=== PATIENT | female | born 2005 | race Caucasian/White ===

== ENCOUNTER 2024-05-15 13:53 | Outpatient (AMB) | payer BC, SELFPAY ==
--- NOTE | 2024-05-15 13:59 | AMB.OBINITIA ---
Vital Signs 05/15/24 14:10 Height 1.65 m Height Method Stated Weight 77.734 kg Weight Measurement Method Standing Scale BMI 28.5 BP 104/63 Blood Pressure Source Automatic Cuff Blood Pressure Location Left Upper Arm Position Sitting Respiration 16 Pulse 98 Pulse Source Monitor Temp 97.2 F Temp Source Oral Pulse Oximetry (%) 99 Oxygen Delivery Method Room Air Allergies/Home Meds Allergies & Medications Allergies No Known Allergies Allergy (Verified 05/15/24 14:11) Medication Reconciliation No Known Home Medications 05/15/24 [History Confirmed 05/15/24] Intake Visit Data Collection New Patient or Established: New Patient (never been to [facility]) Reason for Visit:: New OB vist Seen by Clinical Staff ONLY (RN/MA): No Pump Operator Byproducts Required: No Do You Feel Safe at Home: Yes Authorities Contacted: N/A PCP or OBGYN visit in last 3 months: No Hx Now: Yes Are you currently on any form of Control: No Last menstrual period: 02/04/24 Pain Present Currently: No Pain Scale Used: [place]/Numerical Pain scale:: 0 Smoking Status Smoking Status: Never smoker Are you interested in Quitting?: No Questionnaires Covid-19 Vaccine Questionnaire Has patient been vacinated for Covid-19 Have you been vacinated for Covid-19: Yes PHQ-9 PHQ-2 Over the last 2 weeks, how often have you been bothered by any of the following problems? 1. Little interest or pleasure in doing things: not at all 2. Feeling down, depressed, or hopeless: not at all Total score: 0 PHQ-9 3. Trouble falling or staying asleep, or sleeping too much: Not at all 4. Feeling tired or having little energy: Not at all 5. Poor appetite or overeating: Not at all 6. Feeling bad about yourself - or that you are a failure or have let yourself or your family down: Not at all 7. Trouble concentrating on things, such as reading the newspaper or watching television: Not at all 8. Moving or speaking so slowly that other people could have noticed? - Or the opposite - being so fidgety or restless that you have been moving around a lot more than usual: not at all 9. Thoughts that you would be better off or of hurting yourself in some way: Not at all Total score: 0 Source: Developed by Drs. Keshav Keita, Joan Rahman, Mack Flaherty and colleagues, with an educational ingris from [employer]. Depression screen completed yes Social History Living Situation History Marital Status: Single Lives With: Family Housing: House Housing Other:: Not employed this . Tobacco History Smoking Status: Never smoker Alcohol History Alcohol Intake: Current Domestic Abuse History Do You Feel Safe at Home: Yes Past Medical History Past Medical History Have you ever been diagnosed with any of the following: Neurological Problems Meningitis: No Migraine: No Cardiology Problems Cardiac Arrhythmia: No Heart Murmur: No Deep Vein Thrombosis: No Hypertension: No Respiratory Problems Asthma: No Stomache/Intestinal Problems Gall Bladder Disease: No Irritable Bowel: No Genital/Urinary Problems Renal Disease: No Kidney Stones: No Reproductive Problems Breast Cancer: No Endometriosis: No Fibroids: No Genital Herpes: No Gonorrhea: No Pelvic Inflammatory Disease: No Polycystic Ovarian Syndrome: No Previous Pregnancies: No Syphilis: No Musculoskeletal Problems Rheumatoid Arthritis: No Scoliosis: No Carpal Tunnel Syndrome: Yes Fibromyalgia: No Head,Eye,Nose,Throat Problems Glaucoma: No Endocrine Problems Diabetes Mellitus Type 2: No Hypothyroidism: No Thyroid Cancer: No Blood Problems Anemia: No Clotting Problems: No Psychologic Problems Depression: No Anxiety: No Other Problems Hospitalization: No Cosmetic Surgery: No Surgical History Appendectomy: No Bariatric Surgery: No Breast Surgery: No Additional Surgical History: Tonsillectomy History of Present Illness HPI Narrative The patient is a 19-year-old G1, P0 presents with her aunt for a new OB appointment her LMP was 02/04/2024 making her approximately 15 weeks today. OB Initial Visit Menstrual History Menstrual reliability: definite Flow: normal Menstrual regularity: regular Monthly: Yes Age at menarche: 11 On control pills at conception: No Date of positive home test: 03/11/24 Associated symptoms (LMP): Reports fatigue, breast tenderness and bloating OB History : 1 Para: 0 Infection History & Risk Evaluation History of STDs: none HIV risk evaluation: low risk Hepatitis B risk evaluation: low risk Patient or partner has history of Genital Herpes: No Varicella/chicken pox status: immunized Genetic Screening & History Genetic Screening/Teratology Counseling - Includes patient, baby's father, or anyone in either family with: 1. Patient's age 35 years or older as of estimated date of delivery: No 2. Thalassemia (Azeri, Danish, Mediterranean, or Background); MCV less than 80: No 3. Neural Tube Defect (Meningomyelocele, Spina Bifida, or Anencephaly): No 4. Congenital Heart Defect: No 5. Down Syndrome: No 6. Omi-Sachs (Ashkenazi Anabaptist, Cajun, Nigerien Elmo): No 7. Barney Disease (Ashkenazi Anabaptist): No 8. Familial Dysautonomia (Ashkenazi Anabaptist): No 9. Sickle Cell Disease or Trait (): No 10. Hemophilia or other blood disorders: No 11. Muscular Dystrophy: No 12. Cystic Fibrosis: No 13. Jacob's Chorea: No 14. Mental Retardation/Autism: No 15. Other inherited genetic or chromosomal disorder: No 16. Maternal Metabolic Disorder (EG,TYPE 1 Diabetes, PKU): No 17. Patient or baby's father had a child with defects not listed above: No 18. Recurrent loss or a stillbirth: No 19. Medications (including supplements, vitamins, herbs or otc drugs)/illicit/recreational drugs/alcohol since last menstrual period: No 20. Any other: No Infection History 1. Live with someone with TB or exposed to TB: No 2. Rash or viral illness since last menstrual period: No 3. Hepatitis B,C: No Other (see comments) Source: [employer] OB Flowsheet OB Flowsheet Initial Weight: Not Recorded Date <del>?</del> EGA Weight Edema CTX Effacement BP Fundal ht Pres Dilation Effacement Station Visit Note Alb Glu FHR Mov 05/15/24 <del>?</del> 15w 3d 77.734 kg 104/63 16 145 Review of Systems Constitutional Constitutional: Reports system reviewed and no additional complaints, except as documented and Reports fatigue Comments: Patient reports fatigue she was nauseous but not anymore Gastrointestinal Gastrointestinal: Reports bloating Endocrine Endocrine: Reports fatigue Exam General Limitations: no limitations General Appearance: alert, in no apparent distress, comfortable, cooperative, healthy appearing and well groomed Neck Neck exam: Present normal inspection, full ROM and trachea midline Chest Chest inspection: Present normal inspection and symmetric chest wall rise Resp Respiratory exam: Present normal lung sounds bilaterally Card Cardiovascular exam: Present regular rate, normal rhythm and normal heart sounds Abdominal Abdominal exam: Present soft and normal bowel sounds Extremities Extremities exam: Present normal inspection and full ROM Psych Psychiatric exam: Present normal affect and normal mood Skin Skin exam: Present warm, dry, intact and normal color Assessment & Plan Diagnosis / Problem List (1) : Status: Acute Qualifiers: Weeks of gestation: 15 weeks Qualified Code(s): Z3A.15 - 15 weeks gestation of Assessment and Plan: IUP at 15 weeks. Offered NIPT. Labs ordered. F/U 4 weeks Additional Plan Follow Up: 4 Weeks Office Procedures OB Clinic LOC & Office Proc's Nursing/Assessment Patient Status: Initial/New Patient OB Clinic Nursing Assessment: BP Monitoring, Update PMH in EMR and Vital Signs OB Clinic Coordination of Care: Complex Care and Chronic Disease 1-5, Consent,records obtained, informed consent, Education Simp Pt/Fam and Staff clarify orders Special Needs: Heart tones New Patient Charge New Patient Point Assignment: [id number] New Patient Point Charge: PHARMACY SALESPERSON Level 4 ([id number]) Bedside Ultrasounds US Transabdominal >14 weeks at bedside: Yes
[2024-05-15 14:10] VITALS: BP 104/63; PULSE 98; RESP 16; TEMP 36.2; O2SAT 99; BMI 28.5
== END 2024-05-15 14:39 | disposition home or self-care (01) ==
LOC: HODSOBC 13:53
PROVIDERS: PCP Family Medicine; Referring Provider Family Medicine; Supervising Provider Obstetrics & Gynecology; Visit Provider Obstetrics & Gynecology
DX: Z34.02 Encounter for supervision of normal first pregnancy, second trimester (principal); Z3A.15 15 weeks gestation of pregnancy
CPT/HCPCS: 76805; 99204; G0463

== ENCOUNTER 2024-06-19 10:05 | Outpatient (AMB) | payer BC, SELFPAY ==
[2024-06-19 10:23] VITALS: BP 115/71; PULSE 83; RESP 18; TEMP 36.2; O2SAT 98; BMI 29.9
--- NOTE | 2024-06-19 10:23 | AMB.OBVISIT ---
Vital Signs 06/19/24 10:23 Height 1.65 m Height Method Stated Weight 81.647 kg Weight Measurement Method Standing Scale BMI 29.9 BP 115/71 Blood Pressure Source Automatic Cuff Blood Pressure Location Left Upper Arm Position Sitting Respiration 18 Pulse 83 Pulse Source Monitor Temp 97.2 F Temp Source Oral Pulse Oximetry (%) 98 Oxygen Delivery Method Room Air Allergies/Home Meds Allergies & Medications Allergies No Known Allergies Allergy (Verified 06/19/24 10:24) Medication Reconciliation No Known Home Medications 05/15/24 [History Confirmed 06/19/24] Intake Visit Data Collection New Patient or Established: Established Patient [place] [facility] Reason for Visit:: Return OB visit Seen by Clinical Staff ONLY (RN/MA): No Concrete Pump Operator Required: No Do You Feel Safe at Home: Yes Authorities Contacted: N/A PCP or OBGYN visit in last 3 months: Yes Date of Last PCP or OBGYN visit: 05/15/24 Hx Now: Yes Are you currently on any form of Control: No Pain Present Currently: No Pain Scale Used: [place]/Numerical Pain scale:: 0 Smoking Status Smoking Status: Never smoker Questionnaires Covid-19 Vaccine Questionnaire Has patient been vacinated for Covid-19 Have you been vacinated for Covid-19: Yes PHQ-9 PHQ-2 Over the last 2 weeks, how often have you been bothered by any of the following problems? 1. Little interest or pleasure in doing things: not at all 2. Feeling down, depressed, or hopeless: not at all Total score: 0 PHQ-9 3. Trouble falling or staying asleep, or sleeping too much: Not at all 4. Feeling tired or having little energy: Not at all 5. Poor appetite or overeating: Not at all 6. Feeling bad about yourself - or that you are a failure or have let yourself or your family down: Not at all 7. Trouble concentrating on things, such as reading the newspaper or watching television: Not at all 8. Moving or speaking so slowly that other people could have noticed? - Or the opposite - being so fidgety or restless that you have been moving around a lot more than usual: not at all 9. Thoughts that you would be better off or of hurting yourself in some way: Not at all Total score: 0 If you checked off any problems, how difficult have these problems made it for you to do your work, take care of things at home, or get along with other people?: not difficult at all Source: Developed by Drs. Keshav Keita, Joan Rahman, Mack Flaherty and colleagues, with an educational ingris from [employer]. Depression screen completed yes Social History Living Situation History Marital Status: Lives With: Family Housing: House Housing Other:: Not employed this . Tobacco History Smoking Status: Never smoker Alcohol History Alcohol Intake: Current Domestic Abuse History Do You Feel Safe at Home: Yes Past Medical History Past Medical History Have you ever been diagnosed with any of the following: Neurological Problems Meningitis: No Migraine: No Cardiology Problems Cardiac Arrhythmia: No Heart Murmur: No Deep Vein Thrombosis: No Hypertension: No Respiratory Problems Asthma: No Stomache/Intestinal Problems Gall Bladder Disease: No Irritable Bowel: No Genital/Urinary Problems Renal Disease: No Kidney Stones: No Reproductive Problems Breast Cancer: No Endometriosis: No Fibroids: No Genital Herpes: No Gonorrhea: No Pelvic Inflammatory Disease: No Polycystic Ovarian Syndrome: No Previous Pregnancies: No Syphilis: No Musculoskeletal Problems Rheumatoid Arthritis: No Scoliosis: No Carpal Tunnel Syndrome: Yes Fibromyalgia: No Head,Eye,Nose,Throat Problems Glaucoma: No Endocrine Problems Diabetes Mellitus Type 2: No Hypothyroidism: No Thyroid Cancer: No Blood Problems Anemia: No Clotting Problems: No Psychologic Problems Depression: No Anxiety: No Other Problems Hospitalization: No Cosmetic Surgery: No Surgical History Appendectomy: No Bariatric Surgery: No Breast Surgery: No History of Present Illness HPI Narrative Patient presents for routine OB visit. She is a 19-year-old G1, P0 LMP 02/04/2024 EDC 11/12/2024. Patient was seen with her aunt last time and now with her mother. She states the father the baby is going to be involved he plays baseball for [employer]. She went to peek [facility] baby recently and found that she is having a girl. Visit OB Visit Log OB Flowsheet Initial Weight: Not Recorded Date <del>?</del> EGA Weight Edema CTX Effacement BP Fundal ht Pres Dilation Effacement Station Visit Note Alb Glu FHR Mov 05/15/24 <del>?</del> 15w 3d 77.734 kg 104/63 16 145 06/19/24 <del>?</del> 20w 3d 81.647 kg 115/71 21 Offered NIPT patient's mother is going to call to see if this is covered. 150 KANA Calculator Estimated Delivery Date Method Current WG Current Estimate 11/03/24 Ultrasound #1 20w 3d Other Estimates 11/10/24 LMP (Certain) 19w 3d Comments: lab reviewed from [facility] drawn 06/21: A positive /antibody screen negative/ rubella immune /RPR nonreactive/ hepatitis B surface antigen negative /hemoglobin A1c 4.5 missing on her labs is a urine GC chlamydia/ HIV and urine culture. Expected Delivery Route/Plan Anticipate Notes Visit Date: 06/19/24 Last Updated by: Mulu Brown (OB Clinic)MD Labs reviewed. Patient needs HIV, GC chlamydia, urine culture. Needs structural survey. Assessment & Plan Diagnosis / Problem List (1) : Status: Acute Qualifiers: Weeks of gestation: 20 weeks Qualified Code(s): Z3A.20 - 20 weeks gestation of Assessment and Plan: Ordered structural survey. They are considering NIPT. Other labs that are missing we will draw at the 24-week glucose challenge test. Office Procedures OB Clinic LOC & Office Proc's Nursing/Assessment Patient Status: Established Patient OB Clinic Nursing Assessment: BP Monitoring, Medication Reconciliation, Update PMH in EMR and Vital Signs OB Clinic Coordination of Care: Consent,records obtained, informed consent, Education Simp Pt/Fam, Lab and Imaging orders and Staff clarify orders Special Needs: Heart tones Established Patient Charge Established Patient Point Assignment: 120 Established Patient Point Charge: EP Level 4 (120-155)
== END 2024-06-19 10:44 | disposition home or self-care (01) ==
LOC: HODSOBC 10:05
PROVIDERS: PCP Family Medicine; Referring Provider Family Medicine; Supervising Provider Obstetrics & Gynecology; Visit Provider Obstetrics & Gynecology
DX: Z34.02 Encounter for supervision of normal first pregnancy, second trimester (principal); Z3A.20 20 weeks gestation of pregnancy
CPT/HCPCS: 99214; G0463

== ENCOUNTER 2024-07-15 08:21 | Outpatient (AMB) | payer BC, SELFPAY ==
--- NOTE | 2024-07-15 08:43 | OBCLNT_ITS ---
Vital Signs 07/15/24 08:44 Height 1.65 m Height Method Stated Weight 85.729 kg Weight Measurement Method Standing Scale BMI 31.4 BP 124/75 Blood Pressure Source Automatic Cuff Blood Pressure Location Left Upper Arm Position Sitting Respiration 14 Pulse 79 Pulse Source Monitor Temp 97.7 F Temp Source Oral Pulse Oximetry (%) 98 Oxygen Delivery Method Room Air Allergies/Home Meds Allergies & Medications Allergies No Known Allergies Allergy (Verified 07/15/24 08:45) Medication Reconciliation No Known Home Medications 05/15/24 [History Confirmed 07/15/24] Intake Visit Data Collection New Patient or Established: Established Patient (seen at [facility] within 3 years) Reason for Visit:: CARE Seen by Clinical Staff ONLY (RN/MA): No Floor Layer 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 1. Little interest or pleasure in doing things: not at all 2. Feeling down, depressed, or hopeless: not at all Total score: 0 PHQ-9 3. Trouble falling or staying asleep, or sleeping too much: Not at all 4. Feeling tired or having little energy: Not at all 5. Poor appetite or overeating: Not at all 6. Feeling bad about yourself - or that you are a failure or have let yourself or your family down: Not at all 7. Trouble concentrating on things, such as reading the newspaper or watching television: Not at all 8. Moving or speaking so slowly that other people could have noticed? - Or the opposite - being so fidgety or restless that you have been moving around a lot more than usual: not at all 9. Thoughts that you would be better off or of hurting yourself in some way: Not at all Total score: 0 Source: Developed by Drs. Keshav Keita, Joan Rahman, Mack Flaherty and colleagues, with an educational ingris from [employer]. Depression screen completed yes Social History Living Situation History Lives With: Family Housing: House Housing Other:: Not employed this . 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 Past Medical History: No Hx Hypothyroidism, No Hx Breast Cancer, No Hx Hypertension, No Hx Anemia, No Hx Renal Disease, No Hx Deep Vein Thrombosis, No Hx Diabetes Mellitus Type 2 and No Hx Polycystic Ovarian Syndrome Care OB Visit Log OB Flowsheet Initial Weight: Not Recorded Date -?-?-?-?-?-?-?-?-?-?-?-?- EGA Weight Edema CTX Effacement BP Fundal ht Pres Dilation Effacement Station Visit Note Alb Glu FHR Mov 05/15/24 -?-?-?-?-?-?-?-?-?-?-?-?- 15w 3d 77.734 kg 104/63 16 145 06/19/24 -?-?-?-?-?-?-?-?-?-?-?-?- 20w 3d 81.647 kg 115/71 21 O ffered NIPT patient's mother is going to call to see if this is covered. 150 07/15/24 -?-?-?-?-?-?-?-?-?-?-?-?- 24w 1d 85.729 kg 124/75 24 FOB here. +FM No UCs or LOF 147 active KANA Calculator Estimated Delivery Date Method Current WG Current Estimate 11/03/24 Ultrasound #1 24w 1d Other Estimates 11/10/24 LMP (Certain) 23w 1d Comments: labs: A+\antibody negative\rubella immune\RPR nonreactive\ hepatitis B surface antigen negative. No HIV GC chlamydia or urinalysis done. These are ordered today. Expected Delivery Route/Plan Anticipate Notes Visit Date: 07/15/24 Last Updated by: Mulu Brown (OB Clinic)MD SS done in [place] at [facility]. GCT ordered Visit Date: 06/19/24 Last Updated by: Mulu Brown (OB Clinic)MD Labs reviewed. Patient needs HIV, GC chlamydia, urine culture. Needs structural survey. Office Procedures OB Clinic LOC & Office Proc's Nursing/Assessment Patient Status: Established Patient OB Clinic Nursing Assessment: Medication Reconciliation, Update PMH in EMR and Vital Signs OB Clinic Coordination of Care: Complex Care and Chronic Disease 1-5, Consent,records obtained, informed consent, Education Simp Pt/Fam, Lab and Imaging orders and Staff clarify orders Special Needs: Heart tones Established Patient Charge Established Patient Point Assignment: 130 Established Patient Point Charge: EP Level 4 (120-155) Assessment & Plan Diagnosis / Problem List (1) : Status: Acute Qualifiers: Weeks of gestation: 24 weeks Qualified Code(s): Z3A.24 - 24 weeks gestation of
[2024-07-15 08:44] VITALS: BP 124/75; PULSE 79; RESP 14; TEMP 36.5; O2SAT 98; BMI 31.4
== END 2024-07-15 09:40 | disposition home or self-care (01) ==
LOC: HODSOBC 08:21
PROVIDERS: PCP Family Medicine; Referring Provider Family Medicine; Supervising Provider Obstetrics & Gynecology; Visit Provider Obstetrics & Gynecology
DX: O09.612 Supervision of young primigravida, second trimester (principal); Z3A.24 24 weeks gestation of pregnancy
CPT/HCPCS: 99214; G0463

== ENCOUNTER → 2024-08-06 | Outpatient (CLI) | payer BC, SELFPAY ==
[2024-08-06 14:32] LABS: Glucose,1 Hour PP 50gm Dose 71 mg/dL (80-140)
[2024-08-06 14:52] LABS: HIV (1&2) Antibody Rapid Non-Reactive
[2024-08-06 17:56] LABS: Chlamydia trachomatis PCR Negative (Not Detect); Neisseria Gonorrhoeae DNA PCR Negative (Not Detect); Trichomonas Negative (Negative)
== END | disposition home or self-care (01) ==
LOC: COPL 12:19
PROVIDERS: PCP Family Medicine; Referring Provider Obstetrics & Gynecology; Visit Provider Obstetrics & Gynecology
DX: Z01.89 Encounter for other specified special examinations (principal)
CPT/HCPCS: 36415; 82950; 86703; 87086; 87491; 87591; 87661

== ENCOUNTER 2024-08-12 11:37 | Outpatient (AMB) | payer BC, SELFPAY ==
[2024-08-12 11:56] VITALS: BP 106/70; PULSE 71; RESP 18; TEMP 36.2; O2SAT 97; BMI 32.8
--- NOTE | 2024-08-12 11:56 | OBCLNT_ITS ---
Vital Signs 08/12/24 11:56 Height 1.65 m Height Method Stated Weight 89.414 kg Weight Measurement Method Standing Scale BMI 32.8 BP 106/70 Blood Pressure Source Automatic Cuff Blood Pressure Location Left Upper Arm Position Sitting Respiration 18 Pulse 71 Pulse Source Monitor Temp 97.2 F Temp Source Oral Pulse Oximetry (%) 97 Oxygen Delivery Method Room Air Allergies/Home Meds Allergies & Medications Allergies No Known Allergies Allergy (Verified 08/12/24 12:01) Medication Reconciliation vitamin no.45-iron-FA 28 mg iron-1 mg chewable tablet 1 tab PO 08/12/24 [History] Intake Visit Data Collection New Patient or Established: Established Patient (seen at [facility] within 3 years) Reason for Visit:: OBC Seen by Clinical Staff ONLY (RN/MA): No Ortho/Prosthetic Aide Required: No Do You Feel Safe at Home: Yes Authorities Contacted: N/A PCP or OBGYN visit in last 3 months: Yes Date of Last PCP or OBGYN visit: 07/15/24 Hx Now: Yes Are you currently on any form of Control: No Pain Present Currently: No Pain Scale Used: [place]/Numerical Pain scale:: 0 Smoking Status Smoking Status: Never smoker Questionnaires Covid-19 Vaccine Questionnaire Has patient been vacinated for Covid-19 Have you been vacinated for Covid-19: Yes PHQ-9 PHQ-2 Over the last 2 weeks, how often have you been bothered by any of the following problems? 1. Little interest or pleasure in doing things: not at all 2. Feeling down, depressed, or hopeless: not at all Total score: 0 PHQ-9 3. Trouble falling or staying asleep, or sleeping too much: Not at all 4. Feeling tired or having little energy: Not at all 5. Poor appetite or overeating: Not at all 6. Feeling bad about yourself - or that you are a failure or have let yourself or your family down: Not at all 7. Trouble concentrating on things, such as reading the newspaper or watching television: Not at all 8. Moving or speaking so slowly that other people could have noticed? - Or the opposite - being so fidgety or restless that you have been moving around a lot more than usual: not at all 9. Thoughts that you would be better off or of hurting yourself in some way: Not at all Total score: 0 If you checked off any problems, how difficult have these problems made it for you to do your work, take care of things at home, or get along with other people?: not difficult at all Source: Developed by Drs. Keshav Keita, Joan Rahman, Mack Flaherty and colleagues, with an educational ingris from [employer]. Depression screen completed yes Social History Living Situation History Marital Status: Single Lives With: Family Housing: House Housing Other:: Not employed this . 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 LMP 02/04/2024 EDC 11/12/2024 Care OB Visit Log OB Flowsheet Initial Weight: Not Recorded Date -?-?-?-?-?-?-?-?-?-?-?-?- EGA Weight BP Alb Glu CTX Pres Fundal ht FHR Mov Dilation Station Effacement Hx Notes Visit Note 05/15/24 -?-?-?-?-?-?-?-?-?-?-?-?- 15w 3d 77.734 kg 104/63 16 145 06/19/24 -?-?-?-?-?-?-?-?-?-?-?-?- 20w 3d 81.647 kg 115/71 21 150 Offered NIPT patient's mother is going to call to see if this is covered. 07/15/24 -?-?-?-?-?-?-?-?-?-?-?-?- 24w 1d 85.729 kg 124/75 24 147 active FOB here. +FM No UCs or LOF 08/12/24 -?-?-?-?-?-?-?-?-?-?-?-?- 28w 1d 89.414 kg 106/70 28 135 active + Cramping/NO VB + back pain. To OBT KANA Calculator Estimated Delivery Date Method Current WG Current Estimate 11/03/24 Ultrasound #1 28w 2d Other Estimates 11/10/24 LMP (Certain) 27w 2d Comments: LMP 02/04/24 EDC 11/12/2024 care labs A+\antibody negative\rubella immune\RPR nonreactive\hepatitis B surface antigen negative\HIV negative\hep C negative\GC negative\chlamydia negative 1 hour glucose 71 Structural survey normal Expected Delivery Route/Plan Anticipate Notes Visit Date: 07/15/24 Last Updated by: Mulu Brown (OB Clinic)MD SS done in [place] [facility] GCT ordered Visit Date: 06/19/24 Last Updated by: Mulu Brown (OB Clinic)MD Labs reviewed. Patient needs HIV, GC chlamydia, urine culture. Needs structural survey. Office Procedures OB Clinic LOC & Office Proc's Nursing/Assessment Patient Status: Established Patient OB Clinic Nursing Assessment: Medication Reconciliation, Update PMH in EMR and Vital Signs OB Clinic Coordination of Care: Education Complex Pt/Fam, Consent,records obtained, informed consent, Education Simp Pt/Fam and Lab and Imaging orders Special Needs: Heart tones Established Patient Charge Established Patient Point Assignment: 115 Established Patient Point Charge: EP Level 3 (80-115) Assessment & Plan Diagnosis / Problem List (1) : Status: Acute Qualifiers: Weeks of gestation: 27 weeks Qualified Code(s): Z3A.27 - 27 weeks gestation of Assessment and Plan: This patient is having some cramping send over to OB triage for evaluation. Also ordered glucose challenge test.
== END 2024-08-12 12:08 | disposition home or self-care (01) ==
LOC: HODSOBC 11:37
PROVIDERS: PCP Family Medicine; Referring Provider Family Medicine; Supervising Provider Obstetrics & Gynecology; Visit Provider Obstetrics & Gynecology
DX: Z34.03 Encounter for supervision of normal first pregnancy, third trimester (principal); Z3A.28 28 weeks gestation of pregnancy
CPT/HCPCS: 99213; G0463

== ENCOUNTER 2024-08-12 12:25 | Observation (INO) | payer BC, SELFPAY ==
[2024-08-12] VITALS (25 sets, daily range): BP systolic 114; BP diastolic 59; PULSE 67–97; RESP 18–99; TEMP 36.5; O2SAT 90–100; BMI 32.8
--- NOTE | 2024-08-12 12:36 | XR_ITS ---
Examination: Complete OB ultrasound greater than 14 weeks Date and time of exam: August 12, 2024 1249 hours INDICATIONS: Pelvic pain and lower back pain beginning one week ago Findings: Viable intrauterine single fetus with single amniotic sac presentation cephalic spine anterior Cardiac motion 137 BPM Placenta anterior grade 1 Umbilical cord insertion seen Amniotic fluid index 19.2 cm Cervix 2.5 cm Ovaries obscured by bowel gas. Composite estimated gestational age based on BPD, head circumference, abdominal circumference, femur length is 28 weeks 1 day Estimated weight 1102 g. Survey of intracranial anatomy, spinal anatomy, abdominal anatomy, four-chamber heart performed with no abnormalities identified. Impression: Viable intrauterine gestation cephalic presentation.
[2024-08-12 13:03] LABS: Collection Type, Urine Clean Catch
[2024-08-12 13:31] LABS: FFN Specimen Descripton Other; Fetal Fibronectin Negative (Negative)
[2024-08-12 13:43] LABS: Bacteria,Urine Rare; Bilirubin,Urine Negative (Negative); Blood,Urine Negative (Negative); Clarity,Urine Clear (Clear/Hazy); Color,Urine Lt-Yellow (Lt Yel-Yel); Glucose, Urine Negative (Negative); Ketones,Urine Negative (Negative); Leukocyte Esterase,Urine Negative (Negative); Nitrite,Urine Negative (Negative); Protein,Urine Negative (Neg - Trace); RBC,Urine 2 /hpf (0-3); Specific Gravity,Urine 1.026 (1.001-1.035); Squamous Epithelial Cell,Urine 10 /hpf (0-5); Urobilinogen,Urine Negative mg/dL (0.0-1.0); WBC,Urine 2 /hpf (0-5)
== END 2024-08-12 14:35 | disposition home or self-care (01) ==
PROVIDERS: Admitting Provider Obstetrics & Gynecology; Visit Provider Obstetrics & Gynecology
DX: O26.892 Other specified pregnancy related conditions, second trimester (principal); Z3A.27 27 weeks gestation of pregnancy; M54.9 Dorsalgia, unspecified; R10.2 Pelvic and perineal pain
CPT/HCPCS: 59025; 59899; 76805; 81001; 82731; 87086

== ENCOUNTER 2024-09-13 14:28 | Outpatient (AMB) | payer BC, SELFPAY ==
[2024-09-13 14:38] VITALS: BP 113/73; PULSE 82; RESP 15; TEMP 36.9; O2SAT 97; BMI 33.3
--- NOTE | 2024-09-13 14:38 | OBCLNT_ITS ---
Vital Signs 09/13/24 14:38 Height 1.65 m Height Method Stated Weight 90.718 kg Weight Measurement Method Standing Scale BMI 33.3 BP 113/73 Blood Pressure Source Automatic Cuff Blood Pressure Location Left Upper Arm Position Sitting Respiration 15 Pulse 82 Pulse Source Monitor Temp 98.4 F Temp Source Oral Pulse Oximetry (%) 97 Oxygen Delivery Method Room Air Allergies/Home Meds Allergies & Medications Allergies No Known Allergies Allergy (Verified 09/13/24 14:44) Medication Reconciliation vitamin no.45-iron-FA 28 mg iron-1 mg chewable tablet 1 tab PO 08/12/24 [History Confirmed 09/13/24] Intake Visit Data Collection New Patient or Established: Established Patient (seen at [facility] within 3 years) Reason for Visit:: CARE Seen by Clinical Staff ONLY (RN/MA): No Solution Make Up Operator Required: No Do You Feel Safe at Home: Yes Authorities Contacted: N/A PCP or OBGYN visit in last 3 months: No Hx Now: Yes Are you currently on any form of Control: No Pain Present Currently: No Pain Scale Used: [place]/Numerical Pain scale:: 0 Smoking Status Smoking Status: Never smoker Questionnaires Covid-19 Vaccine Questionnaire Has patient been vacinated for Covid-19 Have you been vacinated for Covid-19: Yes PHQ-9 PHQ-2 Over the last 2 weeks, how often have you been bothered by any of the following problems? 1. Little interest or pleasure in doing things: not at all 2. Feeling down, depressed, or hopeless: not at all Total score: 0 PHQ-9 3. Trouble falling or staying asleep, or sleeping too much: Not at all 4. Feeling tired or having little energy: Not at all 5. Poor appetite or overeating: Not at all 6. Feeling bad about yourself - or that you are a failure or have let yourself or your family down: Not at all 7. Trouble concentrating on things, such as reading the newspaper or watching television: Not at all 8. Moving or speaking so slowly that other people could have noticed? - Or the opposite - being so fidgety or restless that you have been moving around a lot more than usual: not at all 9. Thoughts that you would be better off or of hurting yourself in some way: Not at all Total score: 0 Source: Developed by Drs. Keshav Keita, Joan Rahman, Mack Flaherty and colleagues, with an educational ingris from [employer]. Depression screen completed yes Social History Living Situation History Lives With: Family Housing: House Housing Other:: Not employed this . 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 She stays at home. The FOB is a golf ball marker at [employer]. Care OB Visit Log OB Flowsheet Initial Weight: 76 kg Date -?-?-?-?-?-?-?-?-?-?-?-?- EGA Weight BP Alb Glu CTX Pres Fundal ht FHR Mov Dilation Station Effacement Hx Notes Visit Note 05/15/24 -?-?-?-?-?-?-?-?-?-?-?-?- 15w 3d 77.734 kg (+1734.392 g) 104/63 16 145 06/19/24 -?-?-?-?-?-?-?-?-?-?-?-?- 20w 3d 81.647 kg (+5646.626 g) 115/71 21 150 Offered NIPT patient's mother is going to call to see if this is covered. 07/15/24 -?-?-?-?-?-?-?-?-?-?-?-?- 24w 1d 85.729 kg (+9728.958 g) 124/75 24 147 active FOB here. +FM No UCs or LOF 08/12/24 -?-?-?-?-?-?-?-?-?-?-?-?- 28w 1d 89.414 kg (+13.414 kg) 106/70 28 135 active + Cramping/NO VB + back pain. To OBT 09/13/24 -?-?-?-?-?-?-?-?-?-?-?-?- 32w 5d 90.718 kg (+14.718 kg) 113/73 32 134 active +FM no UCs or LOF KANA Calculator Estimated Delivery Date Method Current WG Current Estimate 11/03/24 Ultrasound #1 33w 0d Other Estimates 11/10/24 LMP (Certain) 32w 0d Expected Delivery Route/Plan Anticipate Specific Issue/Plans Some PNC at [facility] and the rest at [facility]: A+/Ab-/RI/NR/HIV-/Hep BSag-/One hour GCT 71/ GC-/Chlam- Notes Visit Date: 09/13/24 Last Updated by: Mulu Brown (OB Clinic)MD PNC [facility] 05/29/24 on chart: A+/Ab-/ RI/RPR NR/ HepBSag-/No HIV resulted Visit Date: 07/15/24 Last Updated by: Mulu Brown (OB Clinic)MD SS done in [place] at [facility]. GCT ordered Visit Date: 06/19/24 Last Updated by: Mulu Brown (OB Clinic)MD Labs reviewed. Patient needs HIV, GC chlamydia, urine culture. Needs structural survey. Office Procedures OB Clinic LOC & Office Proc's Nursing/Assessment Patient Status: Established Patient OB Clinic Nursing Assessment: Medication Reconciliation, Update PMH in EMR and Vital Signs OB Clinic Coordination of Care: Complex Care and Chronic Disease 1-5, Consent,records obtained, informed consent, Education Simp Pt/Fam, Lab and Imaging orders, Results/Orders obtained and Staff clarify orders Special Needs: Heart tones Established Patient Charge Established Patient Point Assignment: 135 Established Patient Point Charge: EP Level 4 (120-155)
== END 2024-09-13 15:30 | disposition home or self-care (01) ==
LOC: HODSOBC 14:28
PROVIDERS: PCP Family Medicine; Referring Provider Family Medicine; Supervising Provider Obstetrics & Gynecology; Visit Provider Obstetrics & Gynecology
DX: Z34.03 Encounter for supervision of normal first pregnancy, third trimester (principal); Z3A.32 32 weeks gestation of pregnancy
CPT/HCPCS: 99214; G0463

== ENCOUNTER → 2024-09-13 | Outpatient (CLI) | payer BC, SELFPAY ==
[2024-09-13 16:31] LABS: Basophils # (Auto) 0.1 Thou/mm3 (0.0-0.2); Basophils % (Auto) 1 % (0-2.5); Eosinophils # (Auto) 0.1 Thou/mm3 (0.0-0.5); Eosinophils % (Auto) 2 % (0-10); Hematocrit 35.2 % (36.0-46.0); Hemoglobin 12.4 g/dL (12.0-16.0); Immature Granulocytes Auto 0.08 Thou/mm3 (0.00-0.00); Lymphocytes # (Auto) 1.6 Thou/mm3 (1.0-4.8); Lymphocytes % (Auto) 19 % (10-50); Mean Corpuscular HGB Conc 35.2 g/dl (31.0-37.0); Mean Corpuscular Hemoglobin 29.9 pg (25.0-35.0); Mean Corpuscular Volume 85 fL (80-100); Monocytes # (Auto) 0.7 Thou/mm3 (0.0-0.8); Monocytes % (Auto) 9 % (0-12); Neutrophils # (Auto) 6.0 Thou/mm3 (1.8-7.7); Neutrophils % (Auto) 70 % (37-80); Nucleated Red Blood Cell # 0.00 Thou/mm3 (0.00-0.00); Nucleated Red Blood Cell % 0 /100 WBC (0); Platelet Count 227 Thou/mm3 (140-440); RDW Standard Deviation 37.6 fL (36.4-46.3); Red Blood Count 4.15 Miln/mm3 (4.00-5.20); White Blood Count 8.5 Thou/mm3 (4.5-11.0)
[2024-09-13 17:18] LABS: Syphilis Nonreactive (Nonreactive)
== END | disposition home or self-care (01) ==
LOC: COPL 15:46
PROVIDERS: PCP Family Medicine; Referring Provider Obstetrics & Gynecology; Visit Provider Obstetrics & Gynecology
DX: Z34.92 Encounter for supervision of normal pregnancy, unspecified, second trimester (principal); Z3A.00 Weeks of gestation of pregnancy not specified
CPT/HCPCS: 36415; 85025; 86780

== ENCOUNTER 2024-09-26 10:33 | Outpatient (AMB) | payer BC, SELFPAY ==
[2024-09-26 10:40] VITALS: BP 108/70; PULSE 99; RESP 16; TEMP 36.2; O2SAT 98; BMI 33.8
--- NOTE | 2024-09-26 10:40 | OBCLNT_ITS ---
Vital Signs 09/26/24 10:40 Height 1.65 m Height Method Stated Weight 92.136 kg Weight Measurement Method Standing Scale BMI 33.8 BP 108/70 Blood Pressure Source Automatic Cuff Blood Pressure Location Left Upper Arm Position Sitting Respiration 16 Pulse 99 Pulse Source Monitor Temp 97.2 F Temp Source Oral Pulse Oximetry (%) 98 Oxygen Delivery Method Room Air Allergies/Home Meds Allergies & Medications Allergies No Known Allergies Allergy (Verified 09/26/24 10:41) Medication Reconciliation vitamin no.45-iron-FA 28 mg iron-1 mg chewable tablet 1 tab PO 08/12/24 [History Confirmed 09/26/24] Intake Visit Data Collection New Patient or Established: Established Patient (seen at [facility] within 3 years) Reason for Visit:: OB WEEKLY Seen by Clinical Staff ONLY (RN/MA): No Java Security Architect Required: No Do You Feel Safe at Home: Yes Authorities Contacted: N/A PCP or OBGYN visit in last 3 months: Yes Date of Last PCP or OBGYN visit: 09/13/24 Hx Now: Yes Are you currently on any form of Control: No Pain Present Currently: No Pain Scale Used: [place]/Numerical Pain scale:: 0 Smoking Status Smoking Status: Never smoker Questionnaires Covid-19 Vaccine Questionnaire Has patient been vacinated for Covid-19 Have you been vacinated for Covid-19: Yes PHQ-9 PHQ-2 Over the last 2 weeks, how often have you been bothered by any of the following problems? 1. Little interest or pleasure in doing things: not at all 2. Feeling down, depressed, or hopeless: not at all Total score: 0 PHQ-9 3. Trouble falling or staying asleep, or sleeping too much: Not at all 4. Feeling tired or having little energy: Not at all 5. Poor appetite or overeating: Not at all 6. Feeling bad about yourself - or that you are a failure or have let yourself or your family down: Not at all 7. Trouble concentrating on things, such as reading the newspaper or watching television: Not at all 8. Moving or speaking so slowly that other people could have noticed? - Or the opposite - being so fidgety or restless that you have been moving around a lot more than usual: not at all 9. Thoughts that you would be better off or of hurting yourself in some way: Not at all Total score: 0 If you checked off any problems, how difficult have these problems made it for you to do your work, take care of things at home, or get along with other people?: not difficult at all Source: Developed by Drs. Keshav Keita, Joan Rahman, Mack Flaherty and colleagues, with an educational ingris from [employer]. Depression screen completed yes Social History Living Situation History Lives With: Family Housing: House Housing Other:: Not employed this . 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 Past Medical History: No Hx Hypothyroidism, No Hx Breast Cancer, No Hx Hypertension, No Hx Anemia, No Hx Renal Disease, No Hx Deep Vein Thrombosis, No Hx Diabetes Mellitus Type 2 and No Hx Polycystic Ovarian Syndrome Care OB Visit Log OB Flowsheet Initial Weight: 76 kg Date -?-?-?-?-?-?-?-?-?-?-?-?- EGA Weight BP Alb Glu CTX Pres Fundal ht FHR Mov Dilation Station Effacement Hx Notes Visit Note 05/15/24 -?-?-?-?-?-?-?-?-?-?-?-?- 15w 3d 77.734 kg (+1734.392 g) 104/63 16 145 06/19/24 -?-?-?-?-?-?-?-?-?-?-?-?- 20w 3d 81.647 kg (+5646.626 g) 115/71 21 150 Offered NIPT patient's mother is going to call to see if this is covered. 07/15/24 -?-?-?-?-?-?-?-?-?-?-?-?- 24w 1d 85.729 kg (+9728.958 g) 124/75 24 147 active FOB here. +FM No UCs or LOF 08/12/24 -?-?-?-?-?-?-?-?-?-?-?-?- 28w 1d 89.414 kg (+13.414 kg) 106/70 28 135 active + Cramping/NO VB + back pain. To OBT 09/13/24 -?-?-?-?-?-?-?-?-?-?-?-?- 32w 5d 90.718 kg (+14.718 kg) 113/73 32 134 active +FM no UCs or LOF 09/26/24 -?-?-?-?-?-?-?-?-?-?-?-?- 34w 4d 92.136 kg (+16.136 kg) 108/70 absent cephalic 34 135 act miracle Doing well. Reports good movement. Denies UC's or leaking of fluid. Denies bleeding. Advised kick counts twice a day. GBS next visit. Increase fluids. Return in a week for OB check KANA Calculator Estimated Delivery Date Method Current WG Current Estimate 11/03/24 Ultrasound #1 34w 4d Other Estimates 11/10/24 LMP (Certain) 33w 4d Expected Delivery Route/Plan Anticipate Specific Issue/Plans Some PNC at [facility] and the rest at [facility]: A+/Ab-/RI/NR/HIV-/Hep BSag-/One hour GCT 71/ GC-/Chlam- Notes Visit Date: 09/13/24 Last Updated by: Mulu Brown (OB Clinic)MD PNC [facility] 05/29/24 on chart: A+/Ab-/ RI/RPR NR/ HepBSag-/No HIV resulted Visit Date: 07/15/24 Last Updated by: Mulu Brown (OB Clinic)MD SS done in [place] at [facility]. GCT ordered Visit Date: 06/19/24 Last Updated by: Mulu Brown (OB Clinic)MD Labs reviewed. Patient needs HIV, GC chlamydia, urine culture. Needs structural survey. Office Procedures OB Clinic LOC & Office Proc's Nursing/Assessment Patient Status: Established Patient OB Clinic Nursing Assessment: Medication Reconciliation, Update PMH in EMR and Vital Signs OB Clinic Coordination of Care: Education Complex Pt/Fam, Consent,records obtained, informed consent, Lab and Imaging orders, Results/Orders obtained and Staff clarify orders Special Needs: Heart tones Established Patient Charge Established Patient Point Assignment: 115 Established Patient Point Charge: EP Level 3 (80-115) Assessment & Plan Diagnosis / Problem List (1) Encounter for supervision of normal first , third trimester: Status: Acute Plan Return in a week for OB check. Discussed kick count twice a day. Increase fluids. And discussed labor precautions and ER precautions Additional Plan Follow Up: 1 Week (obc)
== END 2024-09-26 11:13 | disposition home or self-care (01) ==
LOC: HODSOBC 10:33
PROVIDERS: Supervising Provider Advanced Practice Midwife; Visit Provider Advanced Practice Midwife
DX: Z34.03 Encounter for supervision of normal first pregnancy, third trimester (principal); Z3A.34 34 weeks gestation of pregnancy
CPT/HCPCS: 99213; G0463

== ENCOUNTER 2024-10-04 08:57 | Outpatient (AMB) | payer BC, SELFPAY ==
[2024-10-04 09:19] VITALS: BP 118/74; PULSE 77; RESP 17; TEMP 36.4; O2SAT 93; BMI 34.6
--- NOTE | 2024-10-04 09:19 | AMB.OBVISIT ---
Vital Signs 10/04/24 09:19 Height 1.65 m Height Method Measured Weight 94.347 kg Weight Measurement Method Standing Scale BMI 34.6 BP 118/74 Blood Pressure Source Automatic Cuff Blood Pressure Location Right Upper Arm Position Sitting Respiration 17 Pulse 77 Pulse Source Monitor Temp 97.5 F Temp Source Temporal Artery Scan Pulse Oximetry (%) 93 L Oxygen Delivery Method Room Air Allergies/Home Meds Allergies & Medications Allergies No Known Allergies Allergy (Verified 10/04/24 09:20) Medication Reconciliation vitamin no.45-iron-FA 28 mg iron-1 mg chewable tablet 1 tab PO 08/12/24 [History Confirmed 10/04/24] Intake Visit Data Collection New Patient or Established: Established Patient (seen at [facility] within 3 years) Reason for Visit:: C Consent obtained for Telemed Visit: No Seen by Clinical Staff ONLY (RN/MA): No Tack Puller Required: No Do You Feel Safe at Home: Yes Authorities Contacted: N/A PCP or OBGYN visit in last 3 months: Yes Date of Last PCP or OBGYN visit: 09/26/24 Hx Now: Yes Are you currently on any form of Control: No Pain Scale Used: [place]/Numerical Pain scale:: 0 Smoking Status Smoking Status: Never smoker Questionnaires Covid-19 Vaccine Questionnaire Has patient been vacinated for Covid-19 Have you been vacinated for Covid-19: No PHQ-9 PHQ-2 Over the last 2 weeks, how often have you been bothered by any of the following problems? 1. Little interest or pleasure in doing things: not at all PHQ-9 8. Moving or speaking so slowly that other people could have noticed? - Or the opposite - being so fidgety or restless that you have been moving around a lot more than usual: not at all Source: Developed by Drs. Keshav Keita, Joan Rahman, Mack Flaherty and colleagues, with an educational ingris from [employer]. Social History Living Situation History Lives With: Family Housing: House Housing Other:: Not employed this . 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 Care OB Visit Log OB Flowsheet Initial Weight: 76 kg Date <del>?</del> EGA Weight BP Alb Glu CTX Pres Fundal ht FHR Mov Dilation Station Effacement Hx Notes Visit Note 05/15/24 <del>?</del> 15w 3d 77.734 kg (+1734.392 g) 104/63 16 145 06/19/24 <del>?</del> 20w 3d 81.647 kg (+5646.626 g) 115/71 21 150 Offered NIPT patient's mother is going to call to see if this is covered. 07/15/24 <del>?</del> 24w 1d 85.729 kg (+9728.958 g) 124/75 24 147 active FOB here. +FM No UCs or LOF 08/12/24 <del>?</del> 28w 1d 89.414 kg (+13.414 kg) 106/70 28 135 active + Cramping/NO VB + back pain. To OBT 09/13/24 <del>?</del> 32w 5d 90.718 kg (+14.718 kg) 113/73 32 134 active +FM no UCs or LOF 09/26/24 <del>?</del> 34w 4d 92.136 kg (+16.136 kg) 108/70 absent cephalic 34 135 active Doing well. Reports good movement. Denies UC's or leaking of fluid. Denies bleeding. Advised kick counts twice a day. GBS next visit. Increase fluids. Return in a week for OB check 10/04/24 <del>?</del> 35w 5d 94.347 kg (+18.347 kg) 118/74 occasional cephalic 33 144 active Good movement no contractions or loss of fluids Will do group B strep at next visit. KANA Calculator Estimated Delivery Date Method Current WG Current Estimate 11/03/24 Ultrasound #1 35w 5d Other Estimates 11/10/24 LMP (Certain) 34w 5d Expected Delivery Route/Plan Anticipate Specific Issue/Plans Some PNC at [facility] and the rest at [facility]: A+/Ab-/RI/NR/HIV-/Hep BSag-/One hour GCT 71/ GC-/Chlam- Notes Visit Date: 10/04/24 Last Updated by: Mulu Brown (OB Clinic)MD Authorized for ultrasound for growth at [facility] needs strep screen next visit Visit Date: 09/13/24 Last Updated by: Mulu Brown (OB Clinic)MD PNC [facility] 05/29/24 on chart: A+/Ab-/ RI/RPR NR/ HepBSag-/No HIV resulted Visit Date: 07/15/24 Last Updated by: Mulu Brown (OB Clinic)MD SS done in [place] at [facility]. GCT ordered Visit Date: 06/19/24 Last Updated by: Mulu Brown (OB Clinic)MD Labs reviewed. Patient needs HIV, GC chlamydia, urine culture. Needs structural survey. Office Procedures OB Clinic LOC & Office Proc's Nursing/Assessment Patient Status: Established Patient OB Clinic Nursing Assessment: Medication Reconciliation, Update PMH in EMR and Vital Signs OB Clinic Coordination of Care: Complex Care and Chronic Disease 1-5, Consent,records obtained, informed consent and Education Simp Pt/Fam Special Needs: Heart tones Established Patient Charge Established Patient Point Assignment: 105 Established Patient Point Charge: EP Level 3 (80-115) Assessment & Plan Diagnosis / Problem List (1) Encounter for supervision of normal first , third trimester: Status: Acute (2) : Status: Acute Qualifiers: Weeks of gestation: 35 weeks Qualified Code(s): Z3A.35 - 35 weeks gestation of Plan: Need group B strep next visit.
== END 2024-10-04 09:53 | disposition home or self-care (01) ==
LOC: HODSOBC 08:57
PROVIDERS: Supervising Provider Obstetrics & Gynecology; Visit Provider Obstetrics & Gynecology
DX: Z34.03 Encounter for supervision of normal first pregnancy, third trimester (principal); Z3A.35 35 weeks gestation of pregnancy
CPT/HCPCS: 99213; G0463

== ENCOUNTER 2024-10-09 13:01 | Outpatient (AMB) | payer BC, SELFPAY ==
[2024-10-09 13:11] VITALS: BP 113/71; PULSE 77; RESP 16; TEMP 36.8; O2SAT 97; BMI 34.9
--- NOTE | 2024-10-09 13:11 | OBCLNT_ITS ---
Vital Signs 10/09/24 13:11 Height 1.65 m Height Method Stated Weight 95.311 kg Weight Measurement Method Standing Scale BMI 34.9 BP 113/71 Blood Pressure Source Automatic Cuff Blood Pressure Location Left Upper Arm Position Sitting Respiration 16 Pulse 77 Pulse Source Monitor Temp 98.3 F Temp Source Oral Pulse Oximetry (%) 97 Oxygen Delivery Method Room Air Allergies/Home Meds Allergies & Medications Allergies No Known Allergies Allergy (Verified 10/09/24 13:12) Medication Reconciliation vitamin no.45-iron-FA 28 mg iron-1 mg chewable tablet 1 tab PO 08/12/24 [History Confirmed 10/09/24] Intake Visit Data Collection New Patient or Established: Established Patient (seen at [facility] within 3 years) Reason for Visit:: CARE Seen by Clinical Staff ONLY (RN/MA): No Elementary Principal Required: No Do You Feel Safe at Home: Yes Authorities Contacted: N/A PCP or OBGYN visit in last 3 months: Yes Hx Now: Yes Are you currently on any form of Control: No Pain Present Currently: No Pain Scale Used: [place]/Numerical Pain scale:: 0 Smoking Status Smoking Status: Never smoker Questionnaires Covid-19 Vaccine Questionnaire Has patient been vacinated for Covid-19 Have you been vacinated for Covid-19: Yes PHQ-9 PHQ-2 Over the last 2 weeks, how often have you been bothered by any of the following problems? 1. Little interest or pleasure in doing things: not at all 2. Feeling down, depressed, or hopeless: not at all Total score: 0 PHQ-9 3. Trouble falling or staying asleep, or sleeping too much: Not at all 4. Feeling tired or having little energy: Not at all 5. Poor appetite or overeating: Not at all 6. Feeling bad about yourself - or that you are a failure or have let yourself or your family down: Not at all 7. Trouble concentrating on things, such as reading the newspaper or watching television: Not at all 8. Moving or speaking so slowly that other people could have noticed? - Or the opposite - being so fidgety or restless that you have been moving around a lot more than usual: not at all 9. Thoughts that you would be better off or of hurting yourself in some way: Not at all Total score: 0 Source: Developed by Drs. Keshav Keita, Joan Rahman, Mack Flaherty and colleagues, with an educational ingris from [employer]. Depression screen completed yes Social History Living Situation History Lives With: Family Housing: House Housing Other:: Not employed this . 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: Past Medical History Past Medical History: No Hx Hypothyroidism, No Hx Breast Cancer, No Hx Hypertension, No Hx Anemia, No Hx Renal Disease, No Hx Deep Vein Thrombosis, No Hx Diabetes Mellitus Type 2 and No Hx Polycystic Ovarian Syndrome Care OB Visit Log OB Flowsheet Initial Weight: 76 kg Date -?-?-?-?-?-?-?-?-?-?-?-?- EGA Weight BP Alb Glu CTX Pres Fundal ht FHR Mov Dilation Station Effacement Hx Notes Visit Note 05/15/24 -?-?-?-?-?-?-?-?-?-?-?-?- 15w 3d 77.734 kg (+1734.392 g) 104/63 16 145 06/19/24 -?-?-?-?-?-?-?-?-?-?-?-?- 20w 3d 81.647 kg (+5646.626 g) 115/71 21 150 Offered NIPT patient's mother is going to call to see if this is covered. 07/15/24 -?-?-?-?-?-?-?-?-?-?-?-?- 24w 1d 85.729 kg (+9728.958 g) 124/75 24 147 active FOB here. +FM No UCs or LOF 08/12/24 -?-?-?-?-?-?-?-?-?-?-?-?- 28w 1d 89.414 kg (+13.414 kg) 106/70 28 135 active + Cramping/NO VB + back pain. To OBT 09/13/24 -?-?-?-?-?-?-?-?-?-?-?-?- 32w 5d 90.718 kg (+14.718 kg) 113/73 32 134 active +FM no UCs or LOF 09/26/24 -?-?-?-?-?-?-?-?-?-?-?-?- 34w 4d 92.136 kg (+16.136 kg) 108/70 absent cephalic 34 135 act miracle Doing well. Reports good movement. Denies UC's or leaking of fluid. Denies bleeding. Advised kick counts twice a day. GBS next visit. Increase fluids. Return in a week for OB check 10/04/24 -?-?-?-?-?-?-?-?-?-?-?-?- 35w 5d 94.347 kg (+18.347 kg) 118/74 occasional cephalic 33 144 active Good movement no contractions or loss of fluids Will do group B strep at next visit. 10/09/24 -?-?-?-?-?-?-?-?-?-?-?-?- 36w 3d 95.311 kg (+19.311 kg) 113/71 occasional cephalic 36 136 active 1.5 -1 80 Patient feels pressure. Good movement. No vaginal bleeding. No loss of fluids. Group B strep done KANA Calculator Estimated Delivery Date Method Current WG Current Estimate 11/03/24 Ultrasound #1 36w 3d Other Estimates 11/10/24 LMP (Certain) 35w 3d Expected Delivery Route/Plan Anticipate Specific Issue/Plans Some PNC at [facility] and the rest at [facility]: A+/Ab-/RI/NR/HIV-/Hep BSag-/One hour GCT 71/ GC-/Chlam- Notes Visit Date: 10/09/24 Last Updated by: Mulu Brown (OB Clinic)MD Patient had ultrasound for growth at [facility] no report yet it was just yesterday. She stated the baby was head down and measuring 6 pounds 2 ounces. We did discuss this is about an 8 pound baby at her age. Her cervix was 1 to 2 cm dilated 80% effaced -1 station with the posterior position. Patient's mother is present today. Patient will probably desire epidural in labor but is going to come in is late as she can in labor. She is a very athlet ic patient. All questions were answered. Her mother is concerned because her mother had 2 hemorrhages requiring blood transfusion her mother denies having a history of a clotting disorder or a bleeding disorder. Visit Date: 10/04/24 Last Updated by: Mulu Brown (OB Clinic)MD Authorized for ultrasound for growth at [facility] needs strep screen next visit Visit Date: 09/13/24 Last Updated by: Mulu Brown (OB Clinic)MD P[facility] 05/29/24 on chart: A+/Ab-/ RI/RPR NR/ HepBSag-/No HIV resulted Visit Date: 07/15/24 Last Updated by: Mulu Brown (OB Clinic)MD SS done in [place] at [facility]. GCT ordered Visit Date: 06/19/24 Last Updated by: Mulu Brown (OB Clinic)MD Labs reviewed. Patient needs HIV, GC chlamydia, urine culture. Needs structural survey. Office Procedures OB Clinic LOC & Office Proc's Nursing/Assessment Patient Status: Established Patient OB Clinic Nursing Assessment: Medication Reconciliation, Update PMH in EMR and Vital Signs OB Clinic Coordination of Care: Complex Care and Chronic Disease 1-5, Consent,records obtained, informed consent, Education Simp Pt/Fam, Lab and Imaging orders, Results/Orders obtained and Staff clarify orders Special Needs: Heart tones Miscellaneous Interventions: Culture Specimen Collection Established Patient Charge Established Patient Point Assignment: 150 Established Patient Point Charge: EP Level 4 (120-155)
== END 2024-10-09 13:33 | disposition home or self-care (01) ==
LOC: HODSOBC 13:01
PROVIDERS: Supervising Provider Obstetrics & Gynecology; Visit Provider Obstetrics & Gynecology
DX: Z34.93 Encounter for supervision of normal pregnancy, unspecified, third trimester (principal); Z3A.36 36 weeks gestation of pregnancy
CPT/HCPCS: 99214; G0463

== ENCOUNTER 2024-10-16 14:30 | Outpatient (AMB) | payer BC, SELFPAY ==
[2024-10-16 14:46] VITALS: BP 113/74; PULSE 93; RESP 17; TEMP 36.5; O2SAT 93; BMI 35.4
--- NOTE | 2024-10-16 14:46 | OBCLNT_ITS ---
Vital Signs 10/16/24 14:46 Height 1.65 m Height Method Measured Weight 96.615 kg Weight Measurement Method Standing Scale BMI 35.4 BP 113/74 Blood Pressure Source Automatic Cuff Blood Pressure Location Right Upper Arm Position Sitting Respiration 17 Pulse 93 Pulse Source Monitor Temp 97.7 F Temp Source Temporal Artery Scan Pulse Oximetry (%) 93 L Oxygen Delivery Method Room Air Allergies/Home Meds Allergies & Medications Allergies No Known Allergies Allergy (Verified 10/16/24 14:47) Medication Reconciliation vitamin no.45-iron-FA 28 mg iron-1 mg chewable tablet 1 tab PO 08/12/24 [History Confirmed 10/16/24] Intake Visit Data Collection New Patient or Established: Established Patient (seen at [facility] within 3 years) Reason for Visit:: OBC Consent obtained for Telemed Visit: No Seen by Clinical Staff ONLY (RN/MA): No Restorer Paper And Prints Required: No Do You Feel Safe at Home: Yes Authorities Contacted: N/A PCP or OBGYN visit in last 3 months: Yes Date of Last PCP or OBGYN visit: 10/09/24 Hx Now: Yes Are you currently on any form of Control: No Pain Present Currently: No Pain Scale Used: [place]/Numerical Pain scale:: 0 Smoking Status Smoking Status: Never smoker Questionnaires Covid-19 Vaccine Questionnaire Has patient been vacinated for Covid-19 Have you been vacinated for Covid-19: Yes PHQ-9 PHQ-2 Over the last 2 weeks, how often have you been bothered by any of the following problems? 1. Little interest or pleasure in doing things: not at all PHQ-9 8. Moving or speaking so slowly that other people could have noticed? - Or the opposite - being so fidgety or restless that you have been moving around a lot more than usual: not at all Source: Developed by Drs. Keshav Keita, Joan Rahman, Mack Flaherty and colleagues, with an educational ingris from [employer]. Social History Living Situation History Lives With: Family Housing: House Housing Other:: Not employed this . 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: Past Medical History Past Medical History: No Hx Hypothyroidism, No Hx Breast Cancer, No Hx Hypertension, No Hx Anemia, No Hx Renal Disease, No Hx Deep Vein Thrombosis, No Hx Diabetes Mellitus Type 2 and No Hx Polycystic Ovarian Syndrome Care OB Visit Log OB Flowsheet Initial Weight: 76 kg Date -?-?-?-?-?-?-?-?-?-?-?-?- EGA Weight BP Alb Glu CTX Pres Fundal ht FHR Mov Dilation Station Effacement Hx Notes Visit Note 05/15/24 -?-?-?-?-?-?-?-?-?-?-?-?- 15w 3d 77.734 kg (+1734.392 g) 104/63 16 145 06/19/24 -?-?-?-?-?-?-?-?-?-?-?-?- 20w 3d 81.647 kg (+5646.626 g) 115/71 21 150 Offered NIPT patient's mother is going to call to see if this is covered. 07/15/24 -?-?-?-?-?-?-?-?-?-?-?-?- 24w 1d 85.729 kg (+9728.958 g) 124/75 24 147 active FOB here. +FM No UCs or LOF 08/12/24 -?-?-?-?-?-?-?-?-?-?-?-?- 28w 1d 89.414 kg (+13.414 kg) 106/70 28 135 active + Cramping/NO VB + back pain. To OBT 09/13/24 -?-?-?-?-?-?-?-?-?-?-?-?- 32w 5d 90.718 kg (+14.718 kg) 113/73 32 134 active +FM no UCs or LOF 09/26/24 -?-?-?-?-?-?-?-?-?-?-?-?- 34w 4d 92.136 kg (+16.136 kg) 108/70 absent cephalic 34 135 act miracle Doing well. Reports good movement. Denies UC's or leaking of fluid. Denies bleeding. Advised kick counts twice a day. GBS next visit. Increase fluids. Return in a week for OB check 10/04/24 -?-?-?-?-?-?-?-?-?-?-?-?- 35w 5d 94.347 kg (+18.347 kg) 118/74 occasional cephalic 33 144 active Good movement no contractions or loss of fluids Will do group B strep at next visit. 10/09/24 -?-?-?-?-?-?-?-?-?-?-?-?- 36w 3d 95.311 kg (+19.311 kg) 113/71 occasional cephalic 36 136 active 1.5 -1 80 Patient feels pressure. Good movement. No vaginal bleeding. No loss of fluids. 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 movement no contractions no bleeding Positive group B strep KANA Calculator Estimated Delivery Date Method Current WG Current Estimate 11/03/24 Ultrasound #1 37w 3d Other Estimates 11/10/24 LMP (Certain) 36w 3d Expected Delivery Route/Plan Anticipate Patient is interested in epidural Positive group B strep for antibiotics in labor Specific Issue/Plans Some PNC at [facility] and the rest at [facility]: A+/Ab-/RI/NR/HIV-/Hep BSag-/One hour GCT 71/ GC-/Chlam- Notes Visit Date: 10/16/24 Last Updated by: Mulu Brown (OB Clinic)MD Patient was told she is positive for strep. She was told she will need antibiotics during labor. All questions were answered. Labor precautions given. Kick counts encouraged. Her mother is present for the visit today. The father the baby is attending school at [employer] just darted classes today. He does play baseball for [employer] but is not going to be out out of state close to delivery. Visit Date: 10/09/24 Last Updated by: Mulu Brown (OB Clinic)MD Patient had ultrasound for growth at [place] [facility] no report yet it was just yesterday. She stated the baby was head down and measuring 6 pounds 2 ounces. We did discuss this is about an 8 pound baby at her age. Her cervix was 1 to 2 cm dilated 80% effaced -1 station with the posterior position. Patient's mother is present today. Patient will probably desire epidural in labor but is going to come in is late as she can in labor. She is a very athletic patient. All questions were answered. Her mother is concerned because her mother had 2 hemorrhages requiring blood transfusion her mother denies having a history of a clotting disorder or a bleeding disorder. Visit Date: 10/04/24 Last Updated by: Mulu Brown (OB Clinic)MD Authorized for ultrasound for growth at [place] [facility] needs strep screen next visit Visit Date: 09/13/24 Last Updated by: Mulu Brown (OB Clinic)MD [facility] 05/29/24 on chart: A+/Ab-/ RI/RPR NR/ HepBSag-/No HIV resulted Visit Date: 07/15/24 Last Updated by: Mluu Brown (OB Clinic)MD SS done in [place] at [facility]. GCT ordered Visit Date: 06/19/24 Last Updated by: Mulu Brown (OB Clinic)MD Labs reviewed. Patient needs HIV, GC chlamydia, urine culture. Needs structural survey. Office Procedures OB Clinic LOC & Office Proc's Nursing/Assessment Patient Status: Established Patient OB Clinic Nursing Assessment: Medication Reconciliation, Update PMH in EMR and Vital Signs OB Clinic Coordination of Care: Complex Care and Chronic Disease 1-5, Consent,records obtained, informed consent, Education Simp Pt/Fam, 4+ Authorizations needed, Lab and Imaging orders and Results/Orders obtained Special Needs: Heart tones Established Patient Charge Established Patient Point Assignment: 150 Established Patient Point Charge: EP Level 4 (120-155) Assessment & Plan Diagnosis / Problem List (1) : Status: Acute Qualifiers: Weeks of gestation: 36 weeks Qualified Code(s): Z3A.36 - 36 weeks gestation of (2) Mother positive for group B Streptococcus colonization: Status: Acute Plan: Needs antibiotics in labor
== END 2024-10-16 15:15 | disposition home or self-care (01) ==
LOC: HODSOBC 14:30
PROVIDERS: Supervising Provider Obstetrics & Gynecology; Visit Provider Obstetrics & Gynecology
DX: O09.893 Supervision of other high risk pregnancies, third trimester (principal); O99.820 Streptococcus B carrier state complicating pregnancy; Z3A.37 37 weeks gestation of pregnancy
CPT/HCPCS: 99214; G0463

== ENCOUNTER 2024-10-21 22:16 | Observation (INO) | payer BC, SELFPAY ==
[2024-10-21 22:29] VITALS: BP 125/57; PULSE 78; RESP 18; RESP 97; TEMP 36.8; BMI 36.1
[2024-10-21 22:36] VITALS: BP 125/57; PULSE 78
[2024-10-21 22:50] LABS: ROM Kit Lot # 58102387
[2024-10-21 22:51] LABS: ROM Swab Mixed By: BM; Swb Mxed in Solvent 1 min? Yes
[2024-10-21 22:52] LABS: Rupture of Fetal Membranes Negative (Negative)
== END 2024-10-21 23:23 | disposition home or self-care (01) ==
PROVIDERS: Admitting Provider Specialist; Visit Provider Specialist
DX: Z34.03 Encounter for supervision of normal first pregnancy, third trimester (principal); Z3A.37 37 weeks gestation of pregnancy
CPT/HCPCS: 59025; 59899; 84112

== ENCOUNTER 2024-10-22 01:58 | Inpatient (IN) | payer BC, SELFPAY ==
[2024-10-22] VITALS (134 sets, daily range): BP systolic 95–128; BP diastolic 53–92; PULSE 58–99; RESP 16–97; TEMP 36.3–36.8; O2SAT 90–100; BMI 36.1
[2024-10-22 02:57] LABS: Basophils # (Auto) 0.1 Thou/mm3 (0.0-0.2); Basophils % (Auto) 1 % (0-2.5); Eosinophils # (Auto) 0.1 Thou/mm3 (0.0-0.5); Eosinophils % (Auto) 1 % (0-10); Hematocrit 35.0 % (36.0-46.0); Hemoglobin 12.0 g/dL (12.0-16.0); Immature Granulocytes Auto 0.10 Thou/mm3 (0.00-0.00); Lymphocytes # (Auto) 2.4 Thou/mm3 (1.0-4.8); Lymphocytes % (Auto) 23 % (10-50); Mean Corpuscular HGB Conc 34.3 g/dl (31.0-37.0); Mean Corpuscular Hemoglobin 29.2 pg (25.0-35.0); Mean Corpuscular Volume 85 fL (80-100); Monocytes # (Auto) 0.8 Thou/mm3 (0.0-0.8); Monocytes % (Auto) 7 % (0-12); Neutrophils # (Auto) 6.9 Thou/mm3 (1.8-7.7); Neutrophils % (Auto) 67 % (37-80); Nucleated Red Blood Cell # 0.00 Thou/mm3 (0.00-0.00); Nucleated Red Blood Cell % 0 /100 WBC (0); Platelet Count 221 Thou/mm3 (140-440); RDW Standard Deviation 39.6 fL (36.4-46.3); Red Blood Count 4.11 Miln/mm3 (4.00-5.20); White Blood Count 10.4 Thou/mm3 (4.5-11.0)
[2024-10-22 03:05] LABS: Amphetamine/Metham Scrn,Ur OB Negative (Negative); Benzoylecgonine Screen, Ur OB Negative (Negative); Opiate Screen,Urine OB Negative (Negative); THC Screen,Urine OB Negative (Negative)
[2024-10-22] MEDS: RINGERS LACTATED 1000 ML 1,000 ML 125 ML IV ×5 (03:05→23:19)
[2024-10-22] MEDS: Ampicillin Inj 2,000 MG in SODIUM CHLORIDE 0.9% (POP) 100 ML 200 MG IV (03:11)
--- NOTE | 2024-10-22 03:32 | PD.LDHP ---
Documentation for date of: 10/22/24 OB Labor/Induct. HPI History of Present Illness Chief complaint: leaking fluid : 1 Para: 0 Term pregnancies: 0 pregnancies: 0 Living children: 0 History of Abortions: Spontaneous and Elective: 0 History of Vaginal deliveries: 0 History of sections: No History of : No Date of last menstrual period: 02/04/24 KANA: 11/10/24 Gestational Age (weeks): 37 Gestational Age (days): 2 Gestational age based on last menstrual period: 37 History of present illness: 19-year-old 1 para 0 with intrauterine at 37 weeks and 2 days presents to maternal unit complaining of leaking fluid at 00:15 with gross pooling clear fluid noted. Patient reports occasional contractions. Denies bleeding. Reports normal movement. GBS colonization positive. PNC at OB Clinic. Comments: PMHx : Migraine headaches. PSHx: Toncilectomy FHx: Mother: Asthma. Sister: Asthma. Social Hx: Denies ETOH, Drug use or SMO. Allergies: NKDA Meds: MVI. History of Present Adequate Care: Yes Labs Labs: Positive: Rubella Titre and Group Beta Strep, Negative: RPR, HIV, Chlamydia and Gonorrhea and Unknown: Herpes Type 1, Herpes Type 2 and Covid-19 Review of Systems Review of Systems Narrative Review of Systems: Denies any chest pain palpitations cough fever shortness of breath or lower extremity pain. Denies any headache change in vision or right upper quadrant pain. Past Medical History Surgical History SURGICAL: Negative Section Meds Home Medications and Allergies Home Medications ?Medication ?Instructions ?Recorded ?Confirmed ?Type vitamins no.45-iron-FA 28 1 tab PO DAILY 08/12/24 10/22/24 History mg iron-1 mg chewable tablet Allergies Allergy/AdvReac Type Severity Reaction Status Date / Time oats Allergy Mild itchy Verified 10/22/24 02:27 throat OB Exam Physical Exam Vital signs: Temp Pulse Resp BP 98.3 F 77 16 110/69 10/22/24 02:51 10/22/24 03:15 10/22/24 02:51 10/22/24 03:15 Routine HEENT Exam Comments: Within normal limits Routine Respiratory Exam Comments: Clear to auscultation bilaterally Routine Cardiovascular Exam Comments: Regular rate and rhythm Routine Abdominal Exam Comments: Gravid, term size, consistent with 7 1/4 lbs Detailed Labor and Delivery Exam Dilation (cm): 2 Effacement (%): 80 station: -1 Presentation: Vertex Membranes: ruptured Amniotic fluid: clear Comments: By RN exam. Routine Extremities Exam Comments: Nontender Routine Skin Exam Comments: No rashes or lesions Routine Neurological Exam Comments: Deficit OB Results Labs 10/22/24 02:40 Labs: Short CBC 10/22/24 Range/Units 02:40 WBC 10.4 (4.5-11.0) Thou/mm3 Hgb 12.0 (12.0-16.0) g/dL Hct 35.0 L (36.0-46.0) % Plt Count 221 (140-440) Thou/mm3 Impressions Impression: Intrauterine at 37 weeks and 2 days Premature rupture membranes Early labor Group B strep colonization Anticipate spontaneous vaginal delivery Ampicillin group B strep prophylaxis Informed consent was obtained. The patient was made aware of the risks complications of operative vaginal delivery and delivery and she agrees with these modes of delivery if indicated.
[2024-10-22 03:34] LABS: Syphilis Nonreactive (Nonreactive)
[2024-10-22] MEDS: Ampicillin Inj 1,000 MG in SODIUM CHLORIDE 0.9% (Popper) 50 ML 50 MG IV ×5 (07:10→23:18)
--- NOTE | 2024-10-22 09:54 | PC.NURSE ---
Gera director social service at bedside, addressed all questions in rewards to advance direct and obtaining medical for , will address LTC and THC use after pt delivers is .
--- NOTE | 2024-10-22 09:54 | PC.SS ---
JERKER student met with patient to address nursing referral indicating patient requesting information regarding advance directive and medical benefits. Patient was informed that advance directive outlines medical treatment plan that patient wishes to be carried out in the event that patient is unable to verbally confirm medical treatment. Advance directive also allows you to designate a health agent to insure that medical treatment is followed as outlined. Patient was informed that advance directive can be signed in the presents of two witnesses both witnesses must be over 18 years of age, one witness can not be related or benefit financially after passing. Secondary option is to have advance directive witness by public health veterinarian at time of signature. Patient was informed that NB will be presented with temporary medical benefits at the time of . Patient will have 30 days to complete full medical eligibility on behalf of the NB. Patient identified mother, Cara Hackett [phone] or [phone]. Bedside nurse provided with update.
[2024-10-22] MEDS: GENTAMICIN/NS 80 MG IVPB 80 MG/50 ML PIGGYBACK 100 MG IV (17:29)
[2024-10-22] MEDS: OXYTOCIN in NS 30 units 30 UNIT/500 ML BAG IV (21:19)
[2024-10-23] VITALS (166 sets, daily range): BP systolic 109–148; BP diastolic 57–94; PULSE 54–147; RESP 15–20; TEMP 36.3–37.2; O2SAT 84–100
[2024-10-23] MEDS: Ampicillin Inj 1,000 MG in SODIUM CHLORIDE 0.9% (Popper) 50 ML 50 MG IV ×2 (03:48→07:46)
[2024-10-23] MEDS: GENTAMICIN/NS 80 MG IVPB 80 MG/50 ML PIGGYBACK 100 MG IV (04:51)
[2024-10-23] MEDS: MINERAL OIL 30 ML UDC TOP (08:08)
[2024-10-23] MEDS: LIDOCAINE HCL 1% 20 ML VIAL INFL (09:14)
[2024-10-23] MEDS: OXYTOCIN INJ 10 UNIT/ML VIAL IM (09:21)
[2024-10-23] MEDS: METHYLERGONOVINE INJ 0.2 MG/ML VIAL IM (09:21)
[2024-10-23] MEDS: OXYTOCIN in NS 20 units 20 UNIT/1,000 ML BAG 125 UNIT IV (09:24)
[2024-10-23] MEDS: BENZO/LANO/ALOE (Dermoplast) 60 GM CAN 1 SPRAY TOP (09:35)
[2024-10-23] MEDS: IBUPROFEN TAB 400 MG TABLET 800 MG PO (10:03)
[2024-10-23] MEDS: ceFAZolin/D5W 2 GM IV 2 GM/100 ML BAG IV (10:25)
[2024-10-23] MEDS: ONDANSETRON INJ 2 MG/ML INJ 2 ML 4 MG IVP (10:58)
--- NOTE | 2024-10-23 18:40 | OBDSUM_ITS ---
Vacuum Assisted Delivery General Patient Counseled by physician:: Yes Informed consent to patient:: Yes Estimated weight:: 3175.147 g Cervical dilation:: fully dilated station:: +3 position:: LOP Molding:: Yes Caput:: No Vacuum Application Vacuum type:: Kiwi (X 2) Vacuum application:: flexing paramedian Total vacuum time (min):: 3 Cup Placement Flexion point identified:: Yes Cup approp. for head position:: Yes Maternal tissue excluded:: Yes Vacuum Procedure Number of pulls (contractions):: 5 Number of pop-offs:: 3 Recommended range maintained:: Yes Vacuum reduced between pulls:: Yes Advancement made each pull:: Yes Vacuum successful:: Yes Immediate Evaluation Immediate assessment:: no apparent injury Hand-off care to:: nursery nurse Additional Comments Additional comments: Dr. Hale present at delivery along with a REPAIRER AND CHECKER. Data ([place]) Data Hx Section: No Maternal Blood Type: A Pos Rubella Titre: Positive RPR: Non-reactive Labs: Negative: RPR, Hepatitis B, HIV, Chlamydia, Gonorrhea and Group Beta Strep : 1 Term: 0 : 0 Livin Abortions: Spontaneous & Theraputic: 0 Delivery Data (Villagomez) Labor Data Initiation of labor: Augmentation Induction/Augmentation Agent: Cytotec-PO and Pitocin ROM date: 10/22/24 ROM time: 00:15 Amniotic membrane rupture type: Spontaneous Amniotic fluid description: Clear Delivery Data EDC: 11/10/24 EDC calculated by:: LMP/early US confirmation Date of arrival to unit: 10/22/24 Onset of labor date: 10/23/24 Onset of labor time: 00:04 Complete dilation date: 10/23/24 Complete dilation time: 06:04 [place] delivery date: 10/23/24 delivery time: 09:09 Gestational age (weeks): 37 Gestational age (days): 4 Placenta delivery date: 10/23/24 Placenta delivery time: 09:19 Stage 1 total time: Labor - Stage 1 Duration 6 hours and 0 minutes Delivered by: Mulu Brown (OB Clinic) Delivery nurse: patricia isabel Neworn nurse: varun isabel Blockmason at delivery: Yes Support person(s) at delivery: luciano tyler Other staff at delivery: juan luis ISABEL charge, chong ISABEL Delivery Method Delivery method: Operative Vaginal Delivery Presentation: Vertex position: OP Anesthesia Type Anesthesia Type: Local and Epidural Delivery Room Medications Delivery room medications: Methergine 0.2 mg IM, Pitocin 20 u IV and Cytotec 800 NV Placenta Placenta delivery description: Spontaneous Cord blood sent to lab: Yes cord blood collection: Cord Blood Type, Arterial Cord Blood Gas and Venous Cord Blood Gas Episiotomy Episiotomy description: None Lacerations #1: Perineal: 2nd degree Perineal repair Sutures used for repair: 4.0 Chromic and other (2-0 Chronic) EBL Estimated blood loss (ml): 400 Umbilical Cord cord description: 3 Vessels Additional Procedures The patient is a 19-year-old G1, P0 at 37 4/[address] Greco around 3:00 in the morning 10/22/2024. She had ruptured membranes at a little after midnight. All her care was with Dr. Noemí Brown at the [facility] clinic. Patient was admitted and induced. She had progressed to complete by 6:00 in the morning on 10/23/24. She had an epidural and labored down about 90 min. She began pushing about 7:45 in the morning and pushed about an hour and 15 minutes at which point she stated she could not push anymore and she was exhausted. The baby was in an occiput posterior position and asynclitic. Baby was in the +3 presentation. Patient was offered a vacuum and accepted. The risks were discussed with the patient. A Kiwi vacuum was first applied and patient pushed through 1 contraction and the Kiwi popped off. Patient then pushed through 2 or 3 more contractions and made some progress. The Kiwi was reapplied and again descent noted however it popped off again. A mity VAC was then called for. Patient pushed a couple more times and then the mighty VAC was applied for a total of 2 contractions and patient delivered. Total time of mity VAC and Kiwi application was through approximately 4-5 contractions with patient pushing in between on several UCs on her own. Findings: Liveborn female in the LOP presentation with no nuchal cord and no meconium .Apgars were 7 and 9. Weight was 7 pounds 7 ounces. The placenta was complete, spontaneous, grossly normal ,delivering approximately 10 minutes after the baby delivered. pH umbilical artery could not be obtained pH umbilical vein was normal at 7.33 with base excess -4.8. Of note Dr. Hale our Pediartrician was present for vacuum delivery along with the NICU nurse. Also of note, the baby was vigorous at and placed immediately on mom's chest and delayed cord cord clamping was was performed for about 2 minutes. The patient did sustain a second-degree perineal laceration repaired in a standard fashion using 4-0 and 2-0 chromic. After delivery, she was noted to have some brisk bleeding and was given IM Methergine , IV Pitocin and 800 mcg of Cytotec rectally. EBL was approximately 400 cc and patient's predelivery hemoglobin was 12. Complications were none. Condition: both mom and infant were in stable condition the delivery room. Complications Complications: None Data (Villagomez) [place] Data 's name: Annia order: 1 's gender: Female Identification band number: [id number] weight (gms): 3380 g Weight (pounds): 7 lbs and 7.2 ozs [place] length: 52.07 cm 1 minute: 7 5 minutes: 9
[2024-10-24 00:10] VITALS: BP 126/82; PULSE 77; RESP 17; TEMP 36.8; O2SAT 98
[2024-10-24] MEDS: IBUPROFEN TAB 400 MG TABLET 800 MG PO (00:18)
[2024-10-24 04:29] VITALS: BP 126/77; PULSE 62; RESP 16; TEMP 36.4; O2SAT 98
[2024-10-24 06:14] LABS: Basophils # (Auto) 0.1 Thou/mm3 (0.0-0.2); Basophils % (Auto) 1 % (0-2.5); Eosinophils # (Auto) 0.1 Thou/mm3 (0.0-0.5); Eosinophils % (Auto) 1 % (0-10); Hematocrit 30.8 % (36.0-46.0); Hemoglobin 10.3 g/dL (12.0-16.0); Immature Granulocytes Auto 0.09 Thou/mm3 (0.00-0.00); Lymphocytes # (Auto) 2.6 Thou/mm3 (1.0-4.8); Lymphocytes % (Auto) 20 % (10-50); Mean Corpuscular HGB Conc 33.4 g/dl (31.0-37.0); Mean Corpuscular Hemoglobin 28.9 pg (25.0-35.0); Mean Corpuscular Volume 87 fL (80-100); Monocytes # (Auto) 1.1 Thou/mm3 (0.0-0.8); Monocytes % (Auto) 9 % (0-12); Neutrophils # (Auto) 8.7 Thou/mm3 (1.8-7.7); Neutrophils % (Auto) 69 % (37-80); Nucleated Red Blood Cell # 0.00 Thou/mm3 (0.00-0.00); Nucleated Red Blood Cell % 0 /100 WBC (0); Platelet Count 167 Thou/mm3 (140-440); RDW Standard Deviation 40.5 fL (36.4-46.3); Red Blood Count 3.56 Miln/mm3 (4.00-5.20); White Blood Count 12.6 Thou/mm3 (4.5-11.0)
--- NOTE | 2024-10-24 07:40 | PD.LDPPPRG ---
Subjective Subjective Interval history: Delivery type: Patient doing well this morning. No acute complaints. Ambulating, tolerating p.o. and voiding without difficulty. HTN/Pre-Eclampsia screen: No chest pain, shortness of breath, headache, visual changes, epigastric or right upper quadrant pain. Breast-feeding, lochia diminishing. Bowel: Flatus+/ BM+ Exam Vital Signs Temp Pulse Resp BP Pulse Ox O2 Del Method 97.6 F 62 16 126/77 98 Room Air 10/24/24 04:10/24/24 04:10/24/24 04:29 10/24/24 04:29 10/24/24 04:10/24/24 04:29 Constitutional Constitutional: no acute distress Routine HEENT Exam Head: Present normocephalic and atraumatic Eye: Present EOMI and PERRL ENT: Present mucous membranes moist Routine Neck Exam Neck: Present supple and trachea midline Routine Respiratory Exam Respiratory: Present chest non-tender, lungs clear, normal breath sounds and no resp distress Routine Cardiovascular Exam Cardiovascular: Present RRR Routine Abdominal Exam Abdominal: Present soft and normoactive bowel sounds Routine Extremities Exam Extremities: Present full ROM Routine Skin Exam Skin: Present intact, dry and warm Routine Neurological Exam Neurological: Present alert, oriented X3 and CN II-XII intact Routine Psychiatric Exam Psychiatric: Present normal affect and normal thought process Objective Labs 10/24/24 05:45 Labs: Laboratory Results - last 24 hr 10/24/24 05:45 WBC 12.6 H RBC 3.56 L Hgb 10.3 L Hct 30.8 L MCV 87 MCH 28.9 MCHC 33.4 RDW Std Deviation 40.5 Plt Count 167 D Neut % (Auto) 69 Lymph % (Auto) 20 [place] % (Auto) 9 Eos % (Auto) 1 Baso % (Auto) 1 Neut # (Auto) 8.7 H Lymph # (Auto) 2.6 [place] # (Auto) 1.1 H Eos # (Auto) 0.1 Baso # (Auto) 0.1 Immature Gran # (Auto) 0.09 H Absolute Nucleated RBC 0.00 Immature Gran % 1 H Nucleated RBC % 0 Assessment & Plan Problem List (1) Mother positive for group B Streptococcus colonization: Status: Acute Assessment and plan: PPD/POD#1 1. Continue routine care 2. Transition to PO meds. 3. Encourage to ambulate/ breast-feed 4. Anticipate discharge home today. (2) Vaginal delivery: Status: Acute Time Spent With Patient Time: Total time spent is greater than 50% in coordination of care (as documented) at patient's floor/unit and/or counseling patient:
--- NOTE | 2024-10-24 07:41 | ESDS_ITS ---
DS: Providers Provider Date of admission: 10/22/24 02:27 Primary care physician: Physician No Primary/Family Admitting Provider: Mario Alberto Greco MD Attending Provider on Admission: Boubacar Garcia MD Consults: 10/23/24 10:33 Referral Routine Comment: Attending Provider on DC: Boubacar Garcia MD Discharging Provider: Boubacar Garcia MD DS: Diagnosis Discharge Diagnosis (1) Vaginal delivery: Status: Acute (2) Mother positive for group B Streptococcus colonization: Status: Acute Problem List Completed Was Problem List Reviewed/Reconciled?: Yes Summary/Hosp Course Brief History: 19-year-old 1 para 0 with intrauterine at 37 weeks and 2 days presents to maternal unit complaining of leaking fluid at 00:15 with gross pooling clear fluid noted. Patient reports occasional contractions. Denies bleeding. Reports normal movement. GBS colonization positive. PNC at OB Clinic. Peripartum Data Delivery Method: Operative Vaginal Delivery Episiotomy Description: None Time Spent with Patient Time attestation: Total time spent providing and/or coordinating discharge services: Exam Vital Signs Temp Pulse Resp BP Pulse Ox O2 Del Method 97.6 F 62 16 126/77 98 Room Air 10/24/24 04:29 10/24/24 04:29 10/24/24 04:29 10/24/24 04:29 10/24/24 04:29 10/24/24 04:29 Discharge Plan Plan Patient Disposition: HOME (Self Care) Patient condition on transfer: Stable Prescriptions/Referrals Prescriptions/Med Rec: New ibuprofen 400 mg Tablet 800 mg PO Q8H PRN (Reason: See Comments) 10 Days Qty: 40 0RF Continued vitamin no.45-iron-FA 28 mg iron- 1 mg tablet,chewable 1 tab PO DAILY Referrals: Mario Alberto Greco MD [Physician] - No Primary/Family,Physician [Primary Care Provider] - Patient/Caregiver Discharge Instructions Meds to Beds: Yes Education Materials: After a Vaginal , After Delivery [place] Concerns, Breast Care After , Feel Healthy After Print Language: Khmer Stand Alone Forms: Jacque Award Info., Patient Portal Info Letter Discharge Order Discharge Orders: Discharge (Routine); Ordered 10/24/24 Ordered By: Boubacar Garcia Planned Discharge Date 10/24/24
[2024-10-24 08:50] VITALS: BP 119/79; PULSE 74; RESP 15; TEMP 36.9; O2SAT 96
--- NOTE | 2024-10-24 09:16 | PC.SS ---
SURGICAL ASSISTANT conducted bedside contact with patient to address nursing referral indicating patient possessed history of THC use and LTC. SURGICAL ASSISTANT introduced self and role.? At bedside with patient was Jareth HE. Patient confirmed past history of THC use due to pain but stated she stopped using before she got . Patient stated she would use THC for recreational use but no longer uses and does not plan to use. Patient stated that she is not connected to [facility] yet but will be calling after she leaves hospital. Patient stated that she had a natural and had baby girl at 37 weeks. Patient stated she has all of baby supplies, will be breast feeding. Patient stated she was late to care due to no available doctors in the area. Patient stated that she does not have community outreach coordinator yet, SURGICAL ASSISTANT provided patient with list of local clinics and informed client she would need to schedule appointment within 2 days. Patient denies hx of DV, MH, CPS. Patient received OB services at [facility] with Dr. Brown. FOB was in room and SURGICAL ASSISTANT observed appropriate interaction between FOB and infant, father was holding . SS has no concerns or questions at this time. FOB will provide transportation once medically clear.
== END 2024-10-24 13:00 | disposition home or self-care (01) | DRG 807 ==
LOC: S4SX 10-23 09:21 → S4NX 10-23 12:10
PROVIDERS: Obstetrics & Gynecology; Admitting Provider Specialist; Visit Provider Obstetrics & Gynecology
DX: O42.92 Full-term premature rupture of membranes, unspecified as to length of time between rupture and onset of labor (principal); Z37.0 Single live birth; O99.824 Streptococcus B carrier state complicating childbirth; Z3A.37 37 weeks gestation of pregnancy; O70.1 Second degree perineal laceration during delivery; O32.8XX0 Maternal care for other malpresentation of fetus, not applicable or unspecified
CPT/HCPCS: 36415; 80307; 85025; 86780; 86850; 86900; 86901; J0290; J0689; J1580; J2210; J2405; J2590; J2795; J3010; J3490; J7050; J7120; S0191; A9270